=== PATIENT | female | born 1945 | race Caucasian/White ===

== ENCOUNTER → 2016-08-04 | Outpatient (CLI) | payer MEDICARE, OTHER | LOC: MAMO 07-29 08:20 | DX: Z12.31 Encounter for screening mammogram for malignant neoplasm of breast (principal); Z80.3 Family history of malignant neoplasm of breast; Z90.710 Acquired absence of both cervix and uterus | CPT/HCPCS: G0202 ==

== ENCOUNTER → 2020-05-21 | Day surgery (SDC) | payer MEDICARE, OTHER ==
[~2020-05-21] MED LIST: BENICAR5 MG PO; FOLIC ACID 1 MG1 MG PO; KETOCONAZOLE15 GM TP; LIPITOR TAB 2020 MG PO; LOSARTAN POTASS50 MG PO; METHOTREXATE25 MG/ML SC; NORVASC5 MG PO; PEPCID AC10 MG PO; PROTONIX40 MG PO; SINGULAIR10 MG PO; ST. JOSEPH ASPI81 M1 PO; TOPROL XL25 MG PO
== END | disposition home or self-care (01) ==
LOC: OR 07:24
PROVIDERS: Internal Medicine Gastroenterology
PROC: 0DB78ZX Excision of Stomach, Pylorus, Via Natural or Artificial Opening Endoscopic, Diagnostic (ICD-10-PCS; 2020-05-21)
PROC: 0DB68ZX Excision of Stomach, Via Natural or Artificial Opening Endoscopic, Diagnostic (ICD-10-PCS; principal; 2020-05-21 08:00)
DX: K21.00 Gastro-esophageal reflux disease with esophagitis, without bleeding (principal); K29.50 Unspecified chronic gastritis without bleeding; K44.9 Diaphragmatic hernia without obstruction or gangrene; K59.09 Other constipation; I10 Essential (primary) hypertension; E78.5 Hyperlipidemia, unspecified; M19.90 Unspecified osteoarthritis, unspecified site; E66.9 Obesity, unspecified; Z68.32 Body mass index [BMI] 32.0-32.9, adult; Z87.891 Personal history of nicotine dependence; Z79.82 Long term (current) use of aspirin; Z79.1 Long term (current) use of non-steroidal anti-inflammatories (NSAID); Z79.899 Other long term (current) drug therapy; Z20.822 Contact with and (suspected) exposure to COVID-19
CPT/HCPCS: J2704; J7040

== ENCOUNTER → 2020-06-27 | Outpatient (CLI) | payer MEDICARE, OTHER | LOC: NM 08:52 | DX: K31.89 Other diseases of stomach and duodenum (principal); K31.84 Gastroparesis | CPT/HCPCS: 78264; A9541 ==